=== PATIENT | female | born 1975 | race Caucasian/White ===

== ENCOUNTER 2025-07-04 08:18 | Outpatient (CLI) | payer OTHER, SELFPAY ==
--- OUTSIDE RECORDS SUMMARY | 2005-03-17 19:00 | XMS_ITS | Continuity of Care Document ---
Author Organization [facility] Address [address] [place] [address] Phone Care Team Providers Care Indian Nanny Name Role Phone Chiquita LOU, Juvencio Unavailable Freda vailable Advance Directives Directive Yes / No Effective Date File Name No Information Encounters Encounter Description Practice Location Reason(s) For Visit Diagnoses Date Provider Providers Copied on Encounter [facility] , [address], [place], [place], [id number], tel:[phone] [facility] [place] No Information Arian Henning. [address], [place], [place], [id number], [place]. tel:[phone] Family History Family Member Type Diagnosis Age At Onset No Information Payers Payer name Insurance type Covered democrat ID Authoriza tion(s) No Information Social History Type Description Quantity Date Captured Comments Sex Female Smoking Status No Information Vital Signs Date / Time: Height Weight BMI Pulse Rate Blood Pressure Temperature Respiratory Rate Body Surface Area Head Circumference Head Circ. Percentile Wt./[place]. Percentile BMI percentile Pulse Ox Inhaled Ox 10:22 AM 0.00 in 364.00 lbs 0.00 kg/m eter (2) 0 /min 120/70 mm[Hg] 0.00 F 0 /min 0.00 cm 0 % Chief Complaint And Reason For Visit No Information Reason For Referral Reason For Referral No Information History Of Present Illness Encounter Date Complaint History Of Prese nt Illness No Information Functional Status Date Functional Assessmen t No Information Instructions Date Instruction Additional Infor mation No Information Assessments Type Assessment Date No Information Patient Care Teams Name Effective Dates (start - stop) Status Members No Information
--- OUTSIDE RECORDS SUMMARY | 2025-07-04 08:33 | XMS_ITS | Clinical Summary ---
Author Organization [facility] Address [address] [place] [address] Care Team Providers Care Litigator Name Role Phone Unavailable Primary Care Provider Unavailabl e Allergies Active Allergy Reactions Criticality Noted Date Comments Latex Hives,Shortness of Breath/Wheezing,Nausea and Vomiting High 07/29/2017 Sulfa (Sulfonamide Antibiotics) Nausea and Vomiting Low 07/29/2017 Medications sertraline (ZOLOFT) 100 mg tablet Take 150 mg by mouth. 12/01/2019 Active ranolazine ER (RANEXA) 500 mg Extended Release 12 hour tablet Take 1 tablet by mouth once daily 07/23/2020 Active cephALEXin (KEFLEX) 500 mg capsule TAKE 1 CAPSULE BY MOUTH EVERY 12 HOURS FOR 10 DAYS 07/03/2020 Active Active Problems No known active problems Social History Tobacco Use Types Packs/Day Years Used Date Smoking Tobacco: Never Alcohol Use Standard Drinks/Week Comments Yes 0 (1 standard drink = 0.6 oz pur e alcohol) Comments Unknown Sex and Gender Information Value Date Recorded Sex Assigned at Not on file Legal Sex Female 9:27 PM CDT Gender Identity Not on file Sexual Orientation Not on file Last Filed Vital Signs Vital Sign Reading Time Taken Comments Blood Pressure 129/90 08/12/2020 4:27 PM HAND MOLDER Pulse 65 08/12/2020 4:27 PM HAND MOLDER Temperature 36.8 C (98.2 F) 08/12/2020 4:27 PM HAND MOLDER Respiratory Rate - - Oxygen Saturation 95% 08/12/2020 4:27 PM HAND MOLDER Inhaled Oxygen Concentration - - Weight 167.8 kg (370 lb) 08/12/2020 4:27 PM HAND MOLDER Height 177.8 cm (5' 10) 08/12/2020 4:27 PM HAND MOLDER Body Mass Index 53.09 08/12/2020 4:27 PM HAND MOLDER Plan of Treatment Health Maintenance Due Date Last Done Comments DIABETES ANNUAL FOOT EXAM 1995 DIABETES ANNUAL RETINAL EXAM 1995 DIABETES HBA1C Q 6 MONTHS 1995 DIABETES MICROALBUMIN ANNUAL SCREEN 1995 LDL CHOLESTEROL ANNUAL 1995 HEPATITIS B VACCINES (1 of 3 - 19+ 3-dose series) 1996 05/21/2011, 04/23/2011 HPV/Cotest (21-29) 1998 CERVICAL CANCER SCREENING 2007 HPV/Cotest (30-65) 2007 PAP SMEAR 2007 BREAST CANCER SCREENING 2017 COLORECTAL SCREENING 2022 Colorectal Cancer Screening 2022 FIT-DNA Q 3 years 2022 FIT/FOBT Q 1 year 2022 Flex Sig/CT Colonography Q 5 years 2022 INFLUENZA VACCINE (#1) 2025 8, 06/12/2017, 07/25/2016, Additional history exists DTAP/TDAP/TD VACCINES (4 - T d or Tdap) 06/12/2027 06/12/2017, 04/23/2011, 11/10/2008 Insurance
--- OUTSIDE RECORDS SUMMARY | 2025-07-04 08:34 | XMS_ITS | Clinical Summary ---
Author Organization [facility] Address [address] [place] [id number] Care Team Providers [facility] Name Role Phone Erma Levine MD Unavailable Mary Dasilva NP Primary Care Provider [phone] Allergies Active Allergy Reactions Criticality Noted Date Comments Latex Hives,Shortness of breath,Swelling,Chest tightness High 07/29/2017 Nsaids (Non-Steroidal Anti-Inflammatory Drug) Other (See comments) High 09/20/2024 Contraindicated due to gastric bypass Sulfa Shortness of breath High 03/03/2019 Sulfa (Sulfonamide Antibiotics) Shortness of breath,Rash High 07/29/2017 Medications aspirin 81 mg chewable tabletIndications :Type 2 diabetes mellitus with other specified complication, unspecified whether parts counterman insulin use (HCC) Take 1 tablet (81 mg total) by mouth daily 30 tablet 11 024 Active traMADoL (ULTRAM) 50 mg tablet Take 1 tablet (50 mg total) by mouth every 6 (six) hours as needed for pain 15 tablet 024 Active atorvastatin (LIPITOR) 20 mg tabletIndications :Mixed hyperlipidemia Take 1 tablet (20 mg total) by mouth daily 90 tablet 3 025 2025 Active nystatin powderIndications :Yeast dermatitis,Sympto matic abdominal panniculus Apply topically 4 (four) times a day 30 g 2 025 2025 Active ergocalciferol (VITAMIN D) 50,000 unit capsule Take 1 capsule (50,000 Units total) by mouth once a week 12 capsule 1 Active famotidine (PEPCID) 40 mg tabletIndications :Gastroesophageal reflux disease without esophagitis Take 1 tablet (40 mg total) by mouth daily 30 tablet 11 025 2025 Active cyanocobalamin (Vitamin B-12) 1,000 mcg/mL injectionIndicati ons:Vitamin B12 Deficiency Inject 1 mL (1,000 mcg total) into the muscle as instructed every 30 (thirty) days 1 mL Active syringe with needle 1 mL 25 gauge x 1 syringeIndication s:B12 deficiency 1 Units every 30 (thirty) days 12 each Active furosemide (LASIX) 20 mg tabletIndications :Hypertension, essential Take 1 tablet (20 mg total) by mouth daily as needed (for edema) Active azelastine (ASTELIN) 137 mcg (0.1 %) nasal spray [place] 2 sprays twice a day by intranasal route. Active PARoxetine (PAXIL) 10 mg tabletIndications :Menopausal vasomotor syndrome Take 1 tablet (10 mg total) by mouth every morning 30 tablet 3 Active phentermine (ADIPEX-P) 37.5 mg tabletIndications :BMI 33.0-33.9,adult Take 1 tablet (37.5 mg total) by mouth daily before breakfast 30 tablet 2 Active pregabalin (LYRICA) 75 mg capsuleIndication s:Peripheral polyneuropathy,Hy pokalemia Take 1 capsule (75 mg total) by mouth nightly 30 capsule 3 Active ranolazine ER (RANEXA) 500 mg 12 hr tabletIndications :Microvascular angina,Coronary artery disease of [place] artery of [place] heart with stable angina pectoris Take 1 tablet (500 mg total) by mouth 2 (two) times a day 200 tablet Active tirzepatide (Mounjaro) 12.5 mg/0.5 mL pen injector injection INJECT 1 PEN SUBCUTANEOUSLY ONCE A WEEK 4 mL 1 Active traZODone (DESYREL) 50 mg tablet Take 1 tablet (50 mg total) by mouth nightly 30 tablet [address] (PROTONIX) 40 mg EC tabletIndications :Gastroesophageal reflux disease without esophagitis Take 1 tablet by mouth once daily [address] (PROTONIX) 40 mg EC tabletIndications :Gastroesophageal reflux disease without esophagitis Take 1 tablet (40 mg total) by mouth daily 90 tablet 1 025 2024 Discontinued Hospital, Clinic, or Other Facility Administered Medication Ordered Dose Route Frequency Start Date End Date Status cyanocobalamin (Vitamin B-12) injection 1,000 mcgIndications:B12 deficiency 1000 mcg IM Every 30 days 10/07/2024 Active Active Problems Problem Noted Date Diagnosed Date Nonsmoker 06/21/2025 BMI 32.0-32.9,adult 06/21/2025 Psychophysiological insomnia 06/21/2025 Shift work sleep disorder 06/21/2025 YOVANY (obstructive sleep apnea) 06/21/2025 Restless legs 06/21/2025 Yeast dermatitis 10/10/2024 Assessment & Plan (04/07/2025 6:05 PM CDT): Patient with ongoing issues of yeast dermatitis secondary to large pannus. I will prescribe patient with nystatin powder. She will likely need evaluation for panniculectomy secondary to recurrent dermatitis. Referral has been placed for symptomatic panniculus Assessment & Plan (01/12/2025 5:47 PM CDT): Patient with ongoing issues of yeast dermatitis secondary to large pannus. I will prescribe patient with nystatin powder. She will likely need evaluation for panniculectomy secondary to recurrent dermatitis. Assessment & Plan (10/10/2024 6:40 PM SURFACE TO [employer] OFFICER): Patient with ongoing issues of yeast dermatitis secondary to large pannus. I will prescribe patient with nystatin powder. She will likely need evaluation for panniculectomy secondary to recurrent dermatitis. B12 deficiency 10/10/2024 Assessment & Plan (01/12/2025 5:47 PM CDT): We will continue monthly B12 injections. I have advised her to have her blood levels checked right before she is due for injection. Assessment & Plan (10/10/2024 6:44 PM SURFACE TO [employer] OFFICER): We will continue monthly B12 injections. I have advised her to have her blood levels checked right before she is due for injection. Numbness and tingling of both lower extremities 10/10/2024 Assessment & Plan (04/07/2025 6:05 PM CDT): Patient with numbness and pain to upper thigh area secondary to large pannus that puts pressure on groin and leg area at all times. Patient is established with orthopedics. I have advised her to speak to them regarding possible treatments. I do think patient would benefit from panniculectomy secondary to her ongoing symptoms. Assessment & Plan (10/10/2024 6:42 PM SURFACE TO [employer] OFFICER): Patient with numbness and pain to upper thigh area secondary to large pannus that puts pressure on groin and leg area at all times. Patient is established with orthopedics. I have advised her to speak to them regarding possible treatments. I do think patient would benefit from pain colectomy secondary to her ongoing symptoms. Bilateral carpal tunnel syndrome 08/08/2024 Carpal tunnel syndrome of left wrist 08/05/2024 Assessment & Plan (10/10/2024 6:38 PM SURFACE TO [employer] OFF[employer]ER): Follows with orthopedic hand. Status post carpal tunnel release surgery. She is doing well. Cubital tunnel syndrome on left 08/05/2024 Assessment & Plan (10/10/2024 6:38 PM SURFACE TO [employer] OFFICER): Status post cubital tunnel release. Doing well. Symptomatic abdominal panniculus 06/29/2024 Assessment & Plan (04/07/2025 6:05 PM CDT): Patient has large abdominal pannus, meeting grade 4 diagnostic criteria. She has a chronic wound in center of pannus from pannus folding in. She also has chronic ulceration on flanks from pannus folding in. Documentation in chart. She is using nystatin powder and cream PRN refills were provided Patient with numbness and pain to upper thigh area secondary to large pannus that puts pressure on groin and leg area at all times. do think patient would benefit from panniculectomy secondary to her ongoing symptoms. She has a referral in place and may use it now that her BMI is under 35. Assessment & Plan (01/12/2025 5:47 PM CDT): Patient has large abdominal pannus, meeting grade 4 diagnostic criteria. She has a chronic wound in center of pannus from pannus folding in. She also has chronic ulceration on flanks from pannus folding in. Documentation in chart. Patient with numbness and pain to upper thigh area secondary to large pannus that puts pressure on groin and leg area at all times. do think patient would benefit from panniculectomy secondary to her ongoing symptoms. We will be evaluated by plastics for panniculectomy. Assessment & Plan (11/14/2024 4:22 PM SURFACE TO [employer]ER): Assessment & Plan (06/29/2024 6:00 PM CDT): Patient has large abdominal pannus. She indicates to me that she has chronic issues with wound management of her pannus. Additionally her pannus puts a lot of pressure on her lower extremities and does exacerbate hip and leg pain. We will continue to monitor for the time being. Patient advised to keep skin off skin and keep pannus clean and dry as much as possible. I advised her as she continues to lose weight this may continue to improve if not then we will make referral to General surgery for possible panniculectomy Gastroesophageal reflux disease without esophagi tis 06/29/2024 Assessment & Plan (05/01/2025 1:34 PM CDT): Doing well on daily pantoprazole as well as nighttime famotidine. Minimal complaints of reflux at this time. Does admit that she recently increased her Mounjaro and she is having more complaints of metallic burps -Educated on how Mounjaro can decrease gastric emptying which can cause these complaints. Educated on importance of eating small portions and avoiding fatty or/greasy or types of food -If complaints increase discussed decreasing Mounjaro -Also discussed possible EGD for further investigation Assessment & Plan (04/07/2025 6:05 PM CDT): Continue famotidine and pantoprazole. Established with GI Assessment & Plan (01/12/2025 5:47 PM CDT): Assessment & Plan (01/04/2025 8:38 AM CDT): Reports that she has been having complaints of reflux and we will occasional have nighttime vomiting. She is status post gastric sleeve and currently on Mounjaro as well as phentermine to help her continue her weight loss journey. She has lost over 150 lb in the last year. She does admit that on certain occasions that she can eat fast food with her nephew. She goes to bed extremely early at roughly 7:00 p.m. as she awakes at 2:00 a.m. for work. She was recently seen by her PCP who started her on a daily PPI as well as famotidine. States that medication has been extremely helpful. Previous E[place] [address] Daniels noted reflux and discussion about Reglan was noted at that time. -Educated on importance of avoiding certain food triggers including fast food. Educated on importance of sitting upright for roughly 2-3 hours after ingesting food. -Recommended elevating the head of her bed roughly 25 to help with digestion. -Also discussed taking her pantoprazole in the a.m. and her famotidine before bed to help with her complaints. -Recommended for her not to increase her Mounjaro at this time as this decreases her gastric emptying and may increase her complaints. -Discussed possible EGD if complaints continue/worsen Encounter for weight management 12/23/2023 Assessment & Plan (10/10/2024 6:38 PM SURFACE TO [employer] OFFICER): Patient is down 14 lb since last visit with a total of 128 lb since she started weight loss efforts. Refills sent to pharmacy. Discussed medication desired effects, potential side effects, and how to administer the medication. Nonpharmacological interventions such as low carb diet, high in vegetables and fruit discussed. Educated on importance of physical activity. Congratulated patient on continued results. Follow up in 3 months or sooner if needed. Patient verbalizes understanding regarding plan of care and all questions answered. Assessment & Plan (06/29/2024 6:02 PM CDT): Weight is down 36lbs from last visit for a total of 100 lbs. Refills sent to pharmacy. Discussed medication desired effects, potential side effects, and how to administer the medication. Nonpharmacological interventions such as low carb diet, high in vegetables and fruit discussed. Educated on importance of physical activity. Congratulated patient on continued results. Follow up in 3 months or sooner if needed. Patient verbalizes understanding regarding plan of care and all questions answered. Assessment & Plan (04/06/2024 1:19 PM CDT): Weight is down 20lbs from last visit for a total of 64lbs in 3 months. Refills sent to pharmacy. Discussed medication desired effects, potential side effects, and how to administer the medication. Nonpharmacological interventions such as low carb diet, high in vegetables and fruit discussed. Educated on importance of physical activity. Congratulated patient on continued results. Follow up in 3 months or sooner if needed. Patient verbalizes understanding regarding plan of care and all questions answered. Assessment & Plan (12/23/2023 1:43 PM CDT): Cleared with Cardiology. We will start patient on phentermine 37.5 mg daily. I encouraged her to start with a half a tablet. She will start that and Topamax 25 mg b.i.d.. I went over side effects of the medication with her she is advised to not take it if she has any rapid heartbeats or palpitations. Family history of factor V Leiden mutation 12/22 Vitamin D deficiency 12/23/2023 Assessment & Plan (10/10/2024 6:44 PM SURFACE TO [employer] OFFICER): Continue vitamin-D supplement Assessment & Plan (12/23/2023 1:44 PM CDT): Repeat level pending Hypertension, essential 09/23/2023 Assessment & Plan (04/07/2025 6:05 PM CDT): Blood pressure well controlled without medication at this time. Assessment & Plan (01/12/2025 5:47 PM CDT): Orders: furosemide (LASIX) 20 mg tablet; Take 1 tablet (20 mg total) by mouth daily as needed (for edema) Assessment & Plan (10/10/2024 6:45 PM SURFACE TO [employer] OFFICER): Patient is doing so well with her weight loss blood pressure is much better. I have advised her to do a trial at home off the amlodipine 2.5 mg daily. She will message me her readings. Discussed medications desired effects, potential side effects, and how to administer the medication. Non Pharmacological interventions such as low salt, cardiac diet discussed. Educated on stress reduction and physical activity. Discussed signs and symptoms of major cardiovascular event and need to present to the ED. Follow up in 3 months or sooner if needed. Patient verbalizes understanding regarding plan of care and all questions answered. Assessment & Plan (06/29/2024 6:04 PM CDT): Maintained on Norvasc 2.5 mg tablets daily. Blood pressure normal in office today.Blood pressure well controlled. Refills sent to patients requested pharmacy. Discussed medications desired effects, potential side effects, and how to administer the medication. Non Pharmacological interventions such as low salt, cardiac diet discussed. Educated on stress reduction and physical activity. Discussed signs and symptoms of major cardiovascular event and need to present to the ED. Follow up in 3 months or sooner if needed. Patient verbalizes understanding regarding plan of care and all questions answered. Assessment & Plan (04/06/2024 1:14 PM CDT): Maintained on Norvasc 2.5 mg tablets daily. Blood pressure normal in office today.Blood pressure well controlled. Refills sent to patients requested pharmacy. Discussed medications desired effects, potential side effects, and how to administer the medication. Non Pharmacological interventions such as low salt, cardiac diet discussed. Educated on stress reduction and physical activity. Discussed signs and symptoms of major cardiovascular event and need to present to the ED. Follow up in 3 months or sooner if needed. Patient verbalizes understanding regarding plan of care and all questions answered. Assessment & Plan (12/23/2023 1:39 PM CDT): Maintained on Norvasc 2.5 mg tablets daily. Blood pressure normal in office today.Blood pressure well controlled. Refills sent to patients requested pharmacy. Discussed medications desired effects, potential side effects, and how to administer the medication. Non Pharmacological interventions such as low salt, cardiac diet discussed. Educated on stress reduction and physical activity. Discussed signs and symptoms of major cardiovascular event and need to present to the ED. Follow up in 3 months or sooner if needed. Patient verbalizes understanding regarding plan of care and all questions answered. Assessment & Plan (09/23/2023 11:20 AM SURFACE TO [employer] OFFICER): Maintained on Norvasc 2.5 mg tablets daily. Blood pressure normal in office today.Blood pressure well controlled. Refills sent to patients requested pharmacy. Discussed medications desired effects, potential side effects, and how to administer the medication. Non Pharmacological interventions such as low salt, cardiac diet discussed. Educated on stress reduction and physical activity. Discussed signs and symptoms of major cardiovascular event and need to present to the ED. Follow up in 3 months or sooner if needed. Patient verbalizes understanding regarding plan of care and all questions answered. Coronary artery disease of [place] artery of [place] heart with stable angina pectoris 06/19/2023 Assessment & Plan (10/10/2024 6:38 PM SURFACE TO [employer] OFFICER): Patient controlled on Ranexa 500 mg b.I.d. patient follows with Cardiology. She saw Cardiology today. She is asymptomatic. They will continue Ranexa recommended to increase Lipitor no other changes. Continue Lipitor and aspirin. Cardiology's okay with phentermine Assessment & Plan (06/29/2024 6:02 PM CDT): Patient controlled on Ranexa 500 mg b.I.d. patient follows with Cardiology. She saw Cardiology today. She is asymptomatic. They will continue Ranexa recommended to increase Lipitor no other changes. Continue Lipitor and aspirin. Cardiology's okay with phentermine Assessment & Plan (04/06/2024 1:17 PM CDT): Patient controlled on Ranexa 500 mg b.I.d. patient follows with Cardiology. She saw Cardiology today. She is asymptomatic. They will continue Ranexa recommended to increase Lipitor no other changes. Continue Lipitor and aspirin. Cardiology's okay with phentermine Assessment & Plan (12/23/2023 1:39 PM CDT): Patient controlled on Ranexa 500 mg b.I.d. patient follows with Cardiology. She saw Cardiology today. She is asymptomatic. They will continue Ranexa recommended to increase Lipitor no other changes. Cardiology's okay with phentermine Assessment & Plan (09/23/2023 11:17 AM SURFACE TO [employer] OFFICER): Patient controlled on Ranexa 500 mg b.I.d. patient follows with Cardiology. Recently moved back to the area from [place]. She has been referred to Cardiology, she has been rescheduled by them a couple times.. She denies any current angina. She requests to try phentermine for weight loss. However I told her the outside comfortable prescribing this without clearance from Cardiology. Assessment & Plan (06/19/2023 2:21 PM CDT): Patient controlled on Ranexa 500 mg b.I.d. patient follows with Cardiology. Recently moved back to the area from [place]. She is scheduled with Dr. Santiago on June 23. She denies any current angina. Mixed hyperlipidemia 06/19/2023 Assessment & Plan (04/07/2025 6:05 PM CDT): Continue atorvastatin to 20 mg due to cardiology's recommendation of maintaining LDL less than 70. Discussed medication desired effects, potential side effects, and how to administer the medication. Nonpharmacological interventions such as low carb diet, high in vegetables and fruit discussed. Educated on importance of physical activity. Follow up in three months or sooner if needed. Patient verbalizes understanding regarding plan of care and all questions answered Assessment & Plan (10/10/2024 6:39 PM SURFACE TO [employer] OFFICER): Continue atorvastatin to 20 mg due to cardiology's recommendation of maintaining LDL less than 70. Discussed medication desired effects, potential side effects, and how to administer the medication. Nonpharmacological interventions such as low carb diet, high in vegetables and fruit discussed. Educated on importance of physical activity. Follow up in three months or sooner if needed. Patient verbalizes understanding regarding plan of care and all questions answered Assessment & Plan (04/06/2024 1:14 PM CDT): Continue atorvastatin to 20 mg due to cardiology's recommendation of maintaining LDL less than 70. Discussed medication desired effects, potential side effects, and how to administer the medication. Nonpharmacological interventions such as low carb diet, high in vegetables and fruit discussed. Educated on importance of physical activity. Follow up in three months or sooner if needed. Patient verbalizes understanding regarding plan of care and all questions answered Assessment & Plan (12/23/2023 1:41 PM CDT): Fasting lipid panel pending. We will increase atorvastatin to 20 mg due to cardiology's recommendation of maintaining LDL less than 70. Discussed medication desired effects, potential side effects, and how to administer the medication. Nonpharmacological interventions such as low carb diet, high in vegetables and fruit discussed. Educated on importance of physical activity. Follow up in three months or sooner if needed. Patient verbalizes understanding regarding plan of care and all questions answered Assessment & Plan (09/23/2023 11:18 AM SURFACE TO [employer]ICER): Fasting lipid panel reviewed from last visit. Within normal limits. Patient is maintained on Lipitor 10 mg tablets. We will continue this medication. I discussed nonpharmacological interventions with her such as a low saturated fat diet and increasing physical activity. Assessment & Plan (06/19/2023 2:22 PM CDT): Fasting lipid panel ordered. Cholesterol previously controlled on Lipitor 10 mg tablets/ Refills sent to patients requested pharmacy. Discussed medication desired effects, potential side effects, and how to administer the medication. Nonpharmacological interventions such as low carb diet, high in vegetables and fruit discussed. Educated on importance of physical activity. Follow up in 3 months or sooner if needed. Patient verbalizes understanding regarding plan of care and all questions answered H/O gastric bypass 06/19/2023 Assessment & Plan (10/10/2024 6:37 PM SURFACE TO [employer] OFFICER): Patient with history of gastric bypass surgery. Assessment & Plan (12/23/2023 1:38 PM CDT): Patient with history of gastric bypass surgery. Assessment & Plan (09/23/2023 11:20 AM SURFACE TO [employer] OFFICER): Patient with history of gastric bypass surgery. Assessment & Plan (06/19/2023 2:23 PM CDT): Patient with history of gastric bypass surgery. She has not had recent B12, vitamin-D, or folate labs. Patient with initial weight loss of 200 lb however she has gained 100 lb back. We discussed continuing weight loss efforts through injectable medications such as Wegovy. We will try to get Wegovy approved through patient's pharmacy. Wellness examination 06/19/2023 Assessment & Plan (10/10/2024 6:40 PM SURFACE TO [employer] OFFICER): Routine health maintenance objectives discussed and orders placed for any outstanding screening studies. Physical exam performed as above. Routine annual labs obtained and will be reviewed with patient when results available. Age-appropriate anticipatory guidance and counseling was provided and reviewed including: Smoke detectors in the home. Use of sunscreen on a daily basis for skin cancer prevention Encouraged regular physical activity--moderate activity for a total of 150 minutes per week over 3-5 days. Encouraged healthy diet with regular fresh fruits and vegetables limited in processed carbohydrates. Consistent use of seat belt Alcohol use Nicotine use Depression screening Patient is a excellent historian and provided records of mammograms, colonoscopy, previous lab results. Assessment & Plan (06/19/2023 2:30 PM CDT): Routine health maintenance objectives discussed and orders placed for any outstanding screening studies. Physical exam performed as above. Routine annual labs obtained and will be reviewed with patient when results available. Age-appropriate anticipatory guidance and counseling was provided and reviewed including: Smoke detectors in the home. Use of sunscreen on a daily basis for skin cancer prevention Encouraged regular physical activity--moderate activity for a total of 150 minutes per week over 3-5 days. Encouraged healthy diet with regular fresh fruits and vegetables limited in processed carbohydrates. Consistent use of seat belt Alcohol use Nicotine use Depression screening Patient is a excellent historian and provided records of mammograms, colonoscopy, previous lab results. Peripheral polyneuropathy 11/22/2018 Assessment & Plan (04/07/2025 6:05 PM CDT): Orders: pregabalin (LYRICA) 75 mg capsule; Take 1 capsule (75 mg total) by mouth nightly Assessment & Plan (01/12/2025 5:47 PM CDT): She is controlled on Lyrica 75 mg capsules b.I.d.. We will continue that medication. Assessment & Plan (10/10/2024 6:41 PM SURFACE TO [employer] OFFICER): She is controlled on Lyrica 75 mg capsules b.I.d.. We will continue that medication. Assessment & Plan (06/29/2024 6:01 PM CDT): She is controlled on Lyrica 75 mg capsules b.I.d.. We will continue that medication. Assessment & Plan (12/23/2023 1:41 PM CDT): She is controlled on Lyrica 75 mg capsules b.I.d.. We will continue that medication. Assessment & Plan (09/23/2023 11:21 AM SURFACE TO [employer] OFFICER): She is controlled on Lyrica 75 mg capsules b.I.d.. We will continue that medication. Assessment & Plan (06/19/2023 2:28 PM CDT): Patient with longstanding history of peripheral neuropathy. She is controlled on Lyrica 75 mg capsules b.I.d.. We will continue that medication. Medication was sent to patient's pharmacy. Osteoarthritis of spine with radiculopathy, lumb ar region 09/25/2018 Assessment & Plan (10/10/2024 6:41 PM SURFACE TO [employer] OFFICER): Patient with lower back pain which is exacerbated from the weight of her pannus. Assessment & Plan (06/29/2024 6:01 PM CDT): Patient with lower back pain which is exacerbated from the weight of her pannus. Primary osteoarthritis of both knees 06/19/2017 Assessment & Plan (10/10/2024 6:40 PM SURFACE TO [employer] OFFICER): Improving with weight loss Primary osteoarthritis of both hips 03/02/2017 Assessment & Plan (10/10/2024 6:40 PM SURFACE TO [employer] OFFICER): Patient indicates she controls her osteoarthritis of bilateral hips with [id number] pain medication. She tries to be as active as possible. The pressure from her pannus does exacerbate her arthritis. Assessment & Plan (06/29/2024 6:00 PM CDT): Patient indicates she controls her osteoarthritis of bilateral hips with [id number]-[id number] pain medication. She tries to be as active as possible. The pressure from her pannus does exacerbate her arthritis. Acne rosacea 02/27/2016 Assessment & Plan (10/10/2024 6:39 PM SURFACE TO [employer] OFFICER): Currently asymptomatic Diabetes mellitus, type II 02/27/2016 Assessment & Plan (04/07/2025 6:05 PM CDT): A1C at goal. Refills sent to patients requested pharmacy. Discussed medications desired effects, potential side effects, and how to administer the medication. Nonpharmacological interventions such as low carb diet, high in vegetables and low glycemic fruits discussed. Educated on importance of physical activity. Encourage diabetic eye exam. Discussed signs and symptoms of hypoglycemia and need to present to the ED. Follow up in 3 months or sooner if needed. Patient verbalizes understanding regarding plan of care and all questions answered. Assessment & Plan (01/12/2025 5:47 PM CDT): A1C at goal. Refills sent to patients requested pharmacy. Discussed medications desired effects, potential side effects, and how to administer the medication. Nonpharmacological interventions such as low carb diet, high in vegetables and low glycemic fruits discussed. Educated on importance of physical activity. Encourage diabetic eye exam. Discussed signs and symptoms of hypoglycemia and need to present to the ED. Follow up in 3 months or sooner if needed. Patient verbalizes understanding regarding plan of care and all questions answered. Assessment & Plan (10/10/2024 6:38 PM SURFACE TO [employer] OFFICER): Continue Mounjaro 10 mg weekly. Refills sent to patients requested pharmacy. Discussed medications desired effects, potential side effects, and how to administer the medication. Nonpharmacological interventions such as low carb diet, high in vegetables and low glycemic fruits discussed. Educated on importance of physical activity. Encourage diabetic eye exam. Discussed signs and symptoms of hypoglycemia and need to present to the ED. Follow up in 3 months or sooner if needed. Patient verbalizes understanding regarding plan of care and all questions answered. Assessment & Plan (04/06/2024 1:16 PM CDT): will increase the Mounjaro from 5 mg to 7.5 mg with the intention to increase to 10 after 1 month as the 7.5 mg is a stepping dose.Refills sent to patients requested pharmacy. Discussed medications desired effects, potential side effects, and how to administer the medication. Nonpharmacological interventions such as low carb diet, high in vegetables and low glycemic fruits discussed. Educated on importance of physical activity. Encourage diabetic eye exam. Discussed signs and symptoms of hypoglycemia and need to present to the ED. Follow up in 3 months or sooner if needed. Patient verbalizes understanding regarding plan of care and all questions answered. Assessment & Plan (02/29/2024 5:00 PM CDT): We will increase Mounjaro to 5 mg weekly. dicussed and encouraged low- carbohydrate diet, advised to exercise on a regular basis, advised to have annual eye exam. We will continue to monitor. Assessment & Plan (12/23/2023 1:38 PM CDT): Last A1c was in normal limits. She is controlled by diet. Repeat A1c pending Assessment & Plan (09/23/2023 11:17 AM SURFACE TO [employer] OFFICER): Last A1c was in normal limits. She is controlled by diet. Repeat A1c pending Assessment & Plan (06/19/2023 2:23 PM CDT): Patient with a history of type 2 diabetes, last A1c was normal off medications. We have a pending A1c. Resolved Problems Problem Noted Date Diagnosed Date Resolved Date Numbness and tingling in left arm 06/29/2024 10/10/2024 Assessment & Plan (06/29/2024 6:03 PM CDT): Nerve conduction study ordered. We will refer pending results Otitis externa of right ear 02/29/2024 06/29/2024 Assessment & Plan (02/29/2024 5:01 PM CDT): Recommend use of ofloxacin drops daily. Use 5 drops in right ear daily x7 days. Recommend use of Zyrtec for postnasal drip as well. Hypokalemia 09/23/2023 10/10/2024 Assessment & Plan (10/10/2024 6:39 PM SURFACE TO [employer] OFFICER): Maintained on potassium 10 mEq. Assessment & Plan (06/29/2024 6:04 PM CDT): Maintained on potassium 10 mEq. Assessment & Plan (04/06/2024 1:14 PM CDT): Maintained on potassium 10 mEq. Assessment & Plan (12/23/2023 1:40 PM CDT): Maintained on potassium 10 mEq. CMP pending. Assessment & Plan (09/23/2023 11:20 AM SURFACE TO [employer] OFFICER): Maintained on potassium 10 mEq. CMP pending. Morbid obesity with BMI of 40.0-44.9, adult 06/19/2023 04/07/2025 Assessment & Plan (10/10/2024 6:41 PM SURFACE TO [employer] OFFICER): Discussed the patient's BMI. The BMI is above average. BMI management plan is completed. BMI Follow-up includes: nutrition counseling, exercise counseling and education provided. Patient is doing well. She is down a total of 128 lb since starting weight loss program with this office. She is using Topamax, phentermine (with a one month break every 3 months) and Mounjaro (type 2 diabetes). Assessment & Plan (04/06/2024 1:15 PM CDT): Discussed the patient's BMI. The BMI is above average. BMI management plan is completed. BMI Follow-up includes: nutrition counseling, exercise counseling and education provided. 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 Patient is encouraged to continue doing that as this is a great effort towards her weight loss. Patient is doing well. She is lost 20 lb since last visit with a total of 64lb since starting weight loss program with this office. She is using Topamax, phentermine (with a one month break every 3 months) and Mounjaro (type 2 diabetes). Assessment & Plan (02/29/2024 4:59 PM CDT): Discussed the patient's BMI. The BMI is above average. BMI management plan is completed. BMI Follow-up includes: nutrition counseling, exercise counseling and education provided. 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 Patient is encouraged to continue doing that as this is a great effort towards her weight loss. Patient is doing well. She is lost 44 lb since last visit. She is using Topamax, phentermine, and Mounjaro. Assessment & Plan (06/19/2023 2:28 PM CDT): Discussed the patient's BMI. The BMI is above average. BMI management plan is completed. BMI Follow-up includes: nutrition counseling, exercise counseling and education provided. 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 Patient is encouraged to continue doing that as this is a great effort towards her weight loss Gallbladder colic 04/03/2021 04/06/2024 Fall involving ice skates 04/03/2021 Musculoskeletal pain 04/03/2021 024 Pain in right knee 04/03/2021 Urinary tract infectious disease 04/03/2021 06/29/2024 Class 3 severe obesity due t o excess calories with serious comorbidity and body mass index (BMI) of 45.0 to 49.9 in adult 12/05/2019 3 Assessment & Plan (12/05/2019 10:28 AM CDT): Overall Condition: New Diagnosis Treatment: New Medication: Start Phentermine; Follow up PRN Abnormal weight gain 01/05/2019 024 Assessment & Plan (01/05/2019 4:37 PM CDT): Discussed/Re-emphasized Diet (90%) + Physical Activity (10%) Plan: Discussed/Re-emphasized Vegetables/Fruits Nutritional Ranking Handout: Recommended >80% calories from Whole Food Plant Based Nutrition. Discussed/Re-emphasized Processed Food (Frozen, Canned, Fast, Refined...) vs. Whole Food/Organic/Non-GMO Discussed/Re-emphasized High Fiber Diet: How to increase fibers in diet Handout being provided. Discussed/Re-emphasized [place]/Phytochemicals Diet. Disucssed/Re-emphasized [place] Diet: Grocery List and Weekly Meal Plan provided. Discussed/Re-emphasized Low Carb Diet (<50g/day) with approximately Low Calories (<1200kcal/day): Grocery List, Daily Meal Plan and Healthy Alternative being provided. Discussed/Re-emphasized Non-weight bearing exercise to complete average 7500- [id number] steps per day: Swimming or Stationary Exercise Bike. Disccused/Re-emphasized YOVANY/CPAP/Sleep. Disccused/Re-emphasized Good Carb/Protein/Fat. Discussed/Re-emphasized Glycemic Index/Load to determine Good vs. Bad Carbs. Discussed/Re-emphasized Behaviroral Modification to reduce stress by Yoga and Mindfulness. Discussed/Re-emphasized Small (<250kcal) vs. Large Meals (<450kcal) Based on Calories, not volume: Approximately Small Meals x 3 + Large Meal x 1 (Preferably Lunch). Discussed/Re-emphasized Small Meal Intermittent Snacking (<250kcal): Nuts (Soaked in water overnight), Berries, Seeds, Dried/Fresh Fruits/Vegetables. Discussed/Re-emphasized Energy Options: Vitamin B12 Tablets (2 hours prior to Dinner), Caffeine Tablets (in AM or Lunch Time) or FDA Approved Weight Loss Prescription Medications. Discussed/Re-emphasized Weight loss Medications in detail including side effects: Phenteramine, Qsymia, Belviq, Contrave, Saxenda! Consider OTC Meal Replacement Plans or Home Delivery Meal Plans. Encourage Monthly office visits to ensure accountability and continuous positive weight outcomes. General Guidelines: 1. Restrict Caloric Intake: Instead of calculating total calories, you can eliminate one food item from daily intake at a time that would be worth of 100-200 kcal. Minimize Processed carbohydrates (Potatoes, Pasta, Bread, rice and corn) and processed sugars (Sodas, Cookies, Donuts & Desserts). Small plates and bowels. Small meals (Under 250kcal) at a time! 2. Quality of Diet: Organic, Non-GMO, fresh, raw-food, whole-food & more fruits and vegetables. Look for lean protein (Soy, Lentils, beans, legumes and nuts). Avoid processed food (frozen, canned, fast-food). Shop food economically from multiple places. 3. Stress Reduction: Yoga, Mindfulness, Exercise, Volunteering, Spirituality! Mindfulness eating (Avoid multi-tasking while eating and Increase awareness of what food is doing to Body). 4. Quality Restful Sleep: Melatonin, Yoga-Nidra, Kiwi fruit. Avoid meals in last two hours of the day. Avoid Caffeine, alcohol, high sugar/desserts and tobacco with or after dinner. 5. Increase Exertion within Daily Activities: [id number] Steps/day. Avoid Elevators, escalators at public places. Increase steps in parking lots!. Clinical Notes: More than 30 minutes being spent Face to Face with Patient during office visit. More than 50% duration was spent toward Detailed Counselling including various kinds of Dietory methods, activities, medications and potential weight loss surgical options. Detailed Handouts on each topics were also printed and hand-delivered to the patient. BMI 40.0-44.9, adult 11/22/2018 023 Chronic pain syndrome 11/22/20182023 Other chronic pain 11/22/2018 Osteoarthritis of lumbosacra l spine with radiculopathy 10/26/2018 06/29/2024 Surgical follow-up care 10/01/201705/2024 Constipation in pediatric patient 07/30/2017 06/19/2023 Pelvic floor dysfunction 07/29/2017 Morbid (severe) obesity due to excess calories 02/27/2016 04/06/2024 Assessment & Plan (12/23/2023 1:41 PM CDT): We discussed obesity effects on her chronic health conditions of heart disease, prediabetes, joint pain. We discussed general weight loss efforts through lifestyle modifications. We also discussed weight loss efforts through medications her insurance does not cover Wegovy or other weight loss medications. She does want to try phentermine however I am hesitant due to her cardiac history. She must get approval from Cardiology 1st. Assessment & Plan (09/23/2023 11:18 AM SURFACE TO [employer] OFFICER): We discussed obesity effects on her chronic health conditions of heart disease, prediabetes, joint pain. We discussed general weight loss efforts through lifestyle modifications. We also discussed weight loss efforts through medications her insurance does not cover Wegovy or other weight loss medications. She does want to try phentermine however I am hesitant due to her cardiac history. She must get approval from Cardiology 1st. Assessment & Plan (06/19/2023 2:27 PM CDT): Patient is interested in weight loss efforts due to her obesity. We discussed obesity effects on her chronic health conditions of heart disease, prediabetes, joint pain. We discussed general weight loss efforts through lifestyle modifications. We also discussed weight loss efforts through medications and I encouraged patient to try Wegovy if we can get it approved through her insurance. Assessment & Plan (01/05/2019 4:38 PM CDT): Obesity is improving with lifestyle modifications. Discussed the patient's BMI. The BMI is above average; BMI management plan is completed. General weight loss/lifestyle modification strategies discussed (elicit support from others; identify saboteurs; non-food rewards, etc). Depression 02/27/2016 10/10/2024 Assessment & Plan (04/06/2024 1:16 PM CDT): Patient is doing well. She is asymptomatic. Assessment & Plan (12/23/2023 1:39 PM CDT): PHQ is 0 in office today. Assessment & Plan (09/23/2023 11:17 AM SURFACE TO [employer] OFFICER): PHQ is 0 in office today. Assessment & Plan (06/19/2023 2:32 PM CDT): PHQ 2 in office today. Patient controlled off medications. Patient with significant loss and family this week. Her niece from cervical cancer at the age of 32. Patient is sad in office today when discussing this. She will call office if she needs any further interventions. Lower extremity edema 02/27/20162023 Assessment & Plan (12/23/2023 1:41 PM CDT): Continue furosemide 20 mg daily. Encounters Date Type Department Care Team Description 06/21/2025 2:30 PM CDT Office Visit [facility] [address] [place] [id number] Brandon Evans MD YOVANY (obstructive sleep apnea) (Primary Dx); Shift work sleep disorder; Psychophysiological insomnia; BMI 32.0-32.9,adult; Nonsmoker; Restless legs 05/01/2025 1:30 PM CDT Office Visit [facility] at [address] [place] [address] Brittney Gould NP Gastroesophageal reflux disease without esophagitis (Primary Dx) 04/07/2025 Results Follow-Up [facility] at [address] [phone] Mary Dasilva NP Estradiol, Follicle stimulating hormone 04/06/2025 4:15 PM CDT Lab [facility] at [address] [phone] 04/06/2025 4:12 PM CDT - 04/06/2025 11:59 PM CDT Hospital Encounter [address] [id number] Menopausal vasomotor syndrome Discharge Disposition: Discharge to home or self care 04/06/2025 3:00 PM CDT Office Visit [facility] at [address] [phone] Mary Dasilva NP BMI 33.0-33.9,adult (Primary Dx); Daytime hypersomnolence; Excessive sleepiness while driving; Peripheral polyneuropathy; Hypokalemia; Menopausal vasomotor syndrome; Yeast dermatitis; Symptomatic abdominal panniculus; Numbness and tingling of both lower extremities; Mixed hyperlipidemia; Hypertension, essential; Gastroesophageal reflux disease without esophagitis; Type 2 diabetes mellitus with other specified complication, unspecified whether assisted insulin use (HCC) from Last 3 Months Immunizations Immunization Administration Dates Next Due DTaP 11/25/2019 Hep B Vaccine 05/21/2011,04/23/2011 Influenza, Quadrivalent, Spl it, Intramuscular 05/22/2020,08/12/2019,07/12/2018,07/10 Influenza, Quadrivalent, Spl it, Preservative Free, Intramuscular 09/23/2023,08/29/2022,08/19/2021,05/22,08/12/2019,07/12/2018,06/12/2017 Influenza, Trivalent, IM (MDV) 06/14/2015 Influenza, Trivalent, Preser vative Free, Intramuscular 06/29/2024,07/25/2016 Influenza, Unspecified 11/30/2018,06/14/2015 MMR 07/22/2011,04/23/2011,04/22/1991 Pneumococcal Polysaccharide PPV23 11/12/2014 Td, adsorbed 04/22/1991 Tdap 06/12/2017,04/23/2011,11/10/2008 Surgical History Surgery Date Site/Laterality Comments GASTRIC BYPASS 09/21/2015 - 09/20/2016 FISTULA REPAIR CHOLECYSTECTOMY FLUORO GUIDED INJECTION HIP RIGHT 04/09/2017 Right FLUORO GUIDED INJECTION HIP RIGHT 10/05/2017 Right CARDIAC CATHETERIZATION 02/19/2023 CARPAL TUNNEL RELEASE 09/20/2024 Left NEUROPLASTY / TRANSPOSITION ULNAR NERVE AT ELBOW 09/20/2024 Left ulnar nerve decompression Medical History Medical History Date Comments Depression Diabetes Acne rosacea Hypertension Hyperlipidemia GERD (gastroesophageal reflux disease) Neuropathy hands, legs, fee t Constipation in pediatric patient 07/30/2017 Fall involving ice skates 04/03/2021 Diabetes mellitus, type II 02/27/2016 Gastroesophageal reflux disease without esophagi tis 06/29/2024 Hypertension, essential 09/23/2023 Family History Medical History Relation Name Comments COPD Brother Antoni Clotting disorder Brother Antoni Factor V Leiden Brother Antoni Heart attack Father Heart disease Father COPD Mother Danae Cancer Mother Danae Family history of malignant neoplasm - (Added by TW Conv) Colon cancer Mother Danae Family history of colorectal cancer - (Added by TW Conv) Hypertension Mother Danae Colon cancer Other 1 Family history of colorectal cancer - Relation: Uncle (Added by TW Conv) Cancer Other 2 Family history of malignant neoplasm - Relation: Grandparent (Added by TW Conv) Breast cancer Neg Hx Relation Name Status Comments Brother Antoni Alive Father Mother Danae Other 1 Other 2 Social History Tobacco Use Types Packs/Day Years Used Date Smoking Tobacco: Never Smokeless Tobacco: Never Tobacco Cessation:Counseling Given: Not Answered Alcohol Use Standard Drinks/Week Comments Yes 0 (1 standard drink = 0.6 oz pur e alcohol) AUDIT-C Answer Date Recorded Q1: How often do you have a drink containing alcohol? Never 04/06/2025 Q2: How many drinks containi ng alcohol do you have on a typical day when you are drinking? Patient does not drink Q3: How often do you have si x or more drinks on one occasion? Never 04/06/2025 PHQ-2 Answer Date Recorded PHQ-2 Total Score (If total score is 3 or more points, staff should administer the PHQ-9) 2 04/06/2025 Personal Safety Answer Date Recorded Have you ever been in or are you currently in a harmful physical or emotional relationship or is someone making you feel afraid or unsafe? Denies 09/20/2024 Comments No Sex and Gender Information Value Date Recorded Sex Assigned at Not on file Legal Sex Female 11:33 PM SURFACE TO [employer] OFFICER Gender Identity Female 05/22/2023 7:14 AM CDT Sexual Orientation Not on file Obstetrics History Para Term AB IAB SAB Ectopic Multiple Livin g Live Births 0 0 0 Last Filed Vital Signs Vital Sign Reading Time Taken Comments Blood Pressure 110/66 06/21/2025 2:36 PM CDT Pulse 80 06/21/2025 2:36 PM CDT Temperature 36.4 C (97.6 F) 06/21/2025 2:36 PM CDT Respiratory Rate 18 06/21/2025 2:36 PM CDT Oxygen Saturation 99% 06/21/2025 2:36 PM CDT Inhaled Oxygen Concentration - - Weight 103.1 kg (227 lb 4.8 oz) 06/21/2025 2:36 PM CDT Height 177.8 cm (5' 10) 06/21/2025 2:36 PM CDT Body Mass Index 32.61 06/21/2025 2:36 PM CDT Plan of Treatment Health Maintenance Due Date Last Done Comments Dilated Eye Exam 1977 Pneumococcal vaccine <65 (2 of 2 - PCV) 11/12/2015 11/12/2014 Covid-19 Vaccine (2 - 2024-2 6 season) 2025 12/13/2020 Influenza Vaccine (#1) 2025 4, 09/23/2023, 08/29/2022, Additional history exists Albumin Creatinine Ratio, Urine 06/29/2025 4, 06/24/2023 Foot Exam 06/29/2025 06/29/2024 Breast Cancer Screening-Mammogram 07/20/2025 07/20/2024, 01/30/2023, 01/30/2023, Additional history exists Hemoglobin A1C 10/01/2025 03/31/2025, 1005/2024, 12/23/2023, Additional history exists Regular Well Visit/Exam 18-64 10/07/2025, 06/19/2023, 12/01/2019 Colon Cancer Screening-Colonoscopy 01/21/2026 01/21/2021 Lipid Panel 03/31/2026 03/31/2025, 04/0 05/2025, 07/20/2024, Additional history exists eGFR 03/31/2026 03/31/2025, 04/0 05/2025, 07/20/2024, Additional history exists Depression Screening 04/06/2026 04/06/2025, 11/14/2024, 12/23/2023, Additional history exists Cervical Cancer Screening 09/24/2026 09/24/2021 DTaP/Tdap/Td Vaccine (5 - Td or Tdap) 11/24/2029 11/25/2019, 06/12/2017, 04/23/2011, Additional history exists Hepatitis B Screening Completed 05/21/2011, 011 Hepatitis C Screening Discontinued Procedures Procedure Name Priority Date/Time Associated Diagnosis Comments FOLLICLE STIMULATING HORMONE Routine 04/06/2025 4:12 PM CDT Menopausal vasomotor syndrome ESTRADIOL Routine 04/06/2025 4:12 PM CDT Menopausal vasomotor syndrome EGFR Routine 03/31/2025 12:22 PM CDT Mixed hyperlipidemia HEMOGLOBIN A1C Routine 03/31/2025 12:22 PM CDT Type 2 diabetes mellitus with other specified complication, unspecified whether assisted insulin use (HCC) LIPID PANEL Routine 03/31/2025 12:22 PM CDT Type 2 diabetes mellitus with other specified complication, unspecified whether parts counterman insulin use (HCC) Mixed hyperlipidemia SCREENING MAMMOGRAM BILATERAL W ОЛЕГ Schedule Routine, Read Routine (OP Routine) 07/20/2024 9:46 AM CDT Screening mammogram, encounter for ALBUMIN CREATININE RATIO, URINE Routine 06/29/2024 10:20 AM CDT Type 2 diabetes mellitus with other specified complication, without long-term current use of insulin (HCC) from Last 3 Months or Most Recently Relevant to Health Maintenance Results * Estradiol (04/06/2025 4:12 PM CDT) Estradiol 81.8 pg/mL Comment: Interpretive Data Males: 11 43 pg/mL Females: Premenopausal: 31 533 pg/mL Postmenopausal: < 50 pg/mL Patients treated with Fluvestrant (Faslodex) should be tested using an alternate assay such as LC-MS due to potential for cross-reactivity. Estradiol varies widely throughout the menstrual cycle. Current interpretive data was last revised 2024. Testing performed by: [facility], [address] [place] [address]., [id number] Blood 04/06/2025 4:12 PM CDT 04/07/2025 10:12 AM CDT Mary Dasilva ELECTRONIC TRANSACTION IMPLEMENTER LAB BLOOD ORDERABLES Final Re sult Performing Organization Address [facility] de Phone Number [facility] [id number] [place] [address] * Follicle stimulating hormone (04/06/2025 4:12 PM CDT) FSH 15.9 IUnits/L Comment: Interpretive Data Male: Adults: 1.5 - 12.4 IUnits/L Female: Follicular: 3.5 - 12.5 IUnits/L Ovulation: 4.7 - 21.5 IUnits/L Luteal: 1.7 - 7.7 IUnits/L Postmenopausal: 25.8 - 134.8 IUnits/L Current interpretive data was last revised 2015. Testing performed by: [facility], [address] [place] [address]., [id number] Blood 04/06/2025 4:12 PM CDT 04/07/2025 10:12 AM CDT Mary Dasilva NP LAB BLOOD ORDERABLES Final Re sult Performing Organization Address [facility] de Phone Number CARLO [address] Department [place] [address] * eGFR (03/31/2025 12:22 PM CDT) eGFR 73 >=60 mL/min/1. 73 m2 Comment: Interpretive Data Reference Interval Normal >/= 90 mL/min/1.73m2 Mildly decreased* 60 - 89 mL/min/1.73m2 Mildly to moderately decreased 45 - 59 mL/min/1.73m2 Moderately to severely decreased 30 - 44 mL/min/1.73m2 Severely decreased 15 - 29 mL/min/1.73m2 Kidney Failure < 15 mL/min/1.73m2 *Relative to young adult level Estimated glomerular filtration rate is determined by the 2020 CKD-EPI equation recommended by the National Kidney Foundation (A Unifying Approach to GFR Estimation: Recommendations of the NKF-ASK Task Force on Reassessing the Inclusion of Race in Diagnosing Kidney Disease, JASN 2020). The CKD-EPI equation should not be used for patients with unstable renal function and has not been validated in children and those over 70. Current interpretive data was last reviewed 2021. Blood 03/31/2025 12:2 2 PM CDT 03/31/2025 12:57 PM CDT Mary Dasilva NP LAB BLOOD ORDERABLES Final Re sult CARLO [address] [facility] Department [place] [address] * Hemoglobin A1c (03/31/2025 12:22 PM CDT) Hgb A1C 4.5 4.0 - 5.6 % Estimated Average Glucose 82 mg/dL CARLO ESCOBAR Comment: The ADA recommends reporting an estimated Average Glucose (eAG) with all Hemoglobin A1c results using the equation derived from a study of 507 normal and diabetic adults. Minority populations were underrepresented and children were not included. (Diabetes Care 31:8060-6737, 2008). The eAG is not equivalent to a fasting glucose. Blood 03/31/2025 12:2 2 PM CDT 03/31/2025 12:57 PM CDT us Mary Dasilva NP LAB BLOOD ORDERABLES Final Re sult CARLO ESCOBAR [address] [facility] Department [place] [address] * Lipid panel (03/31/2025 12:22 PM CDT) Cholesterol 118 30 - 199 mg/dL Comment: Interpretive Data Ages < or = 19 years Acceptable: <170 mg/dL Borderline high: 170-199 mg/dL High: >or= 200 mg/dL Ages > or = 20 years Desirable: <200 mg/dL Borderline high: 200-239 mg/dL High: >or= 240 mg/dL Literature References: 1. Expert Panel on Integrated Guidelines for Cardiovascular Health and Risk Reduction in Children and Adolescents. Pediatrics 2011;128:S213 2. NCEP Expert Panel. Circulation 2004;110:227 Current Interpretive Data was last revised on 2018. Triglycerides 67 <=149 mg/dL CARLO ESCOBAR Comment: Interpretive Data Ages < or = 9 years Acceptable: <75 mg/dL Borderline high: 75-99 mg/dL High: >or= 100 mg/dL Ages 10 to 20 years Acceptable: <90 mg/dL Borderline high: 90-129 mg/dL High: >or= 130 mg/dL Ages > or = 20 years Desirable: <150 mg/dL Borderline high: 150-199 mg/dL High: 200-499 mg/dL Very high: >or= 499 mg/dL Literature References: 1. Expert Panel on Integrated Guidelines for Cardiovascular Health and Risk Reduction in Children and Adolescents. Pediatrics 2011;128:S213 2. NCEP Expert Panel. Circulation 2004;110:227 Current Interpretive Data was last revised on 2018. HDL 42 >=40 mg/dL CARLO ESCOBAR Comment: Interpretive Data Ages < or = 19 years Acceptable: >45 mg/dL Borderline low: 40-45 mg/dL Low: <40 mg/dL Ages > or = 20 years Desirable: >or= 60 mg/dL Low: <40 mg/dL Literature References: 1. Expert Panel on Integrated Guidelines for Cardiovascular Health and Risk Reduction in Children and Adolescents. Pediatrics 2011;128:S213 2. NCEP Expert Panel. Circulation 2004;110:227 Current Interpretive Data was last revised on 2018. LDL, calculated 62 <=129 mg/dL CARLO ESCOBAR Comment: Interpretive Data Ages < or = 19 years Acceptable: <110 mg/dL Borderline high: 110-129 mg/dL High: >or= 130 mg/dL Ages > or = 20 years Optimal: <100 mg/dL Near optimal: 100-129 mg/dL Borderline high: 130-159 mg/dL High: >160 mg/dL Calculated using the Martin LDL-C estimating equation. This equation was implemented on 2024. Prior to this date LDL-C was estimated using the Friedewald equation. Literature References: 1. Expert Panel on Integrated Guidelines for Cardiovascular Health and Risk Reduction in Children and Adolescents. Pediatrics 2011;128:S213 2. NCEP Expert Panel. Circulation 2004;110:227 3. Martin Flores et al. DARIUS Cardiol. 2019January 19;5(5):540-548. doi: 10.1001/jamacardio.2020.0013 Current Interpretive Data was last revised on 2024. Non-HDL Cholesterol 76 mg/dL CARLO ESCOBAR Comment: Interpretive Data Ages < or = 19 years Acceptable: <120 mg/dL Borderline high: 120-144 mg/dL High: >145 mg/dL Ages > or = 20 years When triglycerides are >200 mg/dL, Non-HDL cholesterol is a secondary target of therapy with treatment goals that are 30 mg/dL greater than the LDL cholesterol target. Literature References: 1. Expert Panel on Integrated Guidelines for Cardiovascular Health and Risk Reduction in Children and Adolescents. Pediatrics 2011;128:S213 2. NCEP Expert Panel. Circulation 2004;110:227 Current Interpretive Data was last revised on 2018. Chol/HDL ratio 3 CARLO ESCOBAR Blood 03/31/2025 12:2 2 PM CDT 03/31/2025 12:57 PM CDT us Mary Dasilva NP LAB BLOOD ORDERABLES Final Re sult CARLO ESCOBAR [address] [facility] Department [place] [address] * Screening Mammogram Bilateral W Олег (07/20/2024 9:46 AM CDT) Anatomical Region Laterality Modality Breast Bilateral Mammography Impressions 08/03/2024 1:47 PM SURFACE TO AIR WEAPONS OFFICER BI-RADS ATLAS category (overall): 1 - Negative There is no mammographic evidence of malignancy. A 1 year screening mammogram is recommended. The patient has been or will be contacted. We recommend annual screening mammography for women at average risk of breast cancer beginning at age 40, based on guidelines of the [employer] (ACR Practice Parameter for the Performance of Screening and Diagnostic Mammography) and [employer]. For women with and elevated risk of breast cancer, please refer to the ACR Practice Parameter for specific screening recommendations. The patient will be entered into a reminder system with a target due date of 1 year for her next screening exam. Narrative 08/03/2024 1:47 PM SURFACE TO AIR WEAPONS OFFICER Screening Mammogram Bilateral W Олег: 07/20/24 The study was acquired using full field digital technology and interpreted from soft copy. 2D digital mammographic views, as well as 3D digital tomosynthesis were performed in the CC and MLO projections. CLINICAL: Screening mammogram, encounter for. No relevant medical history has been documented for this patient. History of breast cancer in Neg Hx. COMPARISONS: 09/08/2017 Screening Mammogram Bilateral W Олег 07/20/2015 US Breast Right Complete 07/20/2015 Diagnostic Mammogram Bilateral W Олег BREAST TISSUE: The breasts are almost entirely fatty. FINDINGS: No suspicious masses, suspicious calcifications, or other suspicious findings are seen within either breast. There has been no suspicious change. Mary Dasilva NP IMG MAMMO PROCEDURES Final Re sult * Albumin Creatinine Ratio, Urine (06/29/2024 10:20 AM CDT) Albumin Ur <12.0 mg/L Comment: Interpretive Data No reference range established. Current interpretive data was last revised 2019. Creatinine Ur 170.0 mg/dL CARLO ESCOBAR Comment: Interpretive Data No reference range established. Current interpretive data was last revised 2019. Albumin Creatinine Ratio, Ur <7 1 - 29 mg/g CARLO ESCOBAR Urine 06/29/2024 10:2 0 AM CDT 06/29/2024 10:46 AM CDT us Mary Dasilva NP LAB URINE ORDERABLES Final Re sult CARLO ESCOBAR [address] [facility] Department [place] [address] from Last 3 Months or Most Recently Relevant to Health Maintenance Insurance [facility] Address: [place] [address] [facility]O Address: [address] [address] [facility]O Address: [address] [address] Care Teams Hospital Medical Biller Relationship Specialty Start Date End Date Mary Dasilva NP [address] [address] PCP - General Internal Medicine 12/20/24 Erma Levine MD Consulting Physician Interventional Cardiology 04/29/19
--- OUTSIDE RECORDS SUMMARY | 2025-07-04 08:34 | XMS_ITS | Encounter Summary ---
Author Organization [facility] Facility Care Team Providers Care Courtesy Van Driver Name Role Phone Yair Singh MD Primary Care Provider [phone] Cuate Ramirez MD Primary Care Provider [phone] Erma Levine MD Unavailable Miscellaneous, Not In File Primary Care Provider Unavailable Mary Dasilva NP Primary Care Provider [phone] Mary Dasilva LICENSED GUIDE Primary Care Provider [phone] Encounter Details Date Type Department Care Team (Latest Contact Info) Description 09/11/2016 Orders Only MMG CLINCONV Provider, MD [place] [address] [place] [address] Social History Tobacco Use Types Packs/Day Years Used Date Smoking Tobacco: Never Assessed Comments Unknown Sex and Gender Information Value Date Recorded Sex Assigned at Not on file Legal Sex Female 11:33 PM SURGICAL RN Gender Identity Female 05/22/2023 7:14 AM CDT Sexual Orientation Not on file documented as of this encounter Plan of Treatment Not on file documented as of this encounter Procedures Procedure Name Priority Date/Time Associated Diagnosis Comments CARDIOLOGY REPORT 08/28/2017 12: 00 AM SURGICAL RN documented in this encounter Results * CARDIOLOGY REPORT (08/28/2017 12:00 AM SURGICAL RN) Anatomical Region Laterality Modality Other Narrative 08/28/2017 12:00 AM SURGICAL RN Ordered by an unspecified provider. us Historical Provider [facility] ALEXANDRO GALAN Final Result documented in this encounter Visit Diagnoses Not on filedocumented in this encounter Care Teams Courtesy Van Driver Relationship Specialty Start Date End Date Yair Singh MD [address] [facility] [address] [place] [address] PCP - General 07/09/17 11/29/18 Cuate Ramirez MD [address] [address] PCP - General 11/30/18 05/31/23 Miscellaneous, Not In File PCP - General 06/01/23 06/18/23 Mary Dasilva NP PCP - General Internal Medicine 06/19/23 12/19/24 Mary Dasilva NP [address] [facility] [address] [place] [address] PCP - General Internal Medicine 12/20/24 Erma Levine MD [address] [address] Consulting Physician Interventional Cardiology 04/29/19 documented as of this encounter
--- OUTSIDE RECORDS SUMMARY | 2025-07-04 08:34 | XMS_ITS | Encounter Summary ---
Author Organization [facility] Facility Care Team Providers Care Lead Technical Writer Name Role Phone Yair Singh MD Primary Care Provider [phone] Cuate Ramirez MD Primary Care Provider [phone] Erma Levine MD Unavailable Miscellaneous, Not In File Primary Care Provider Unavailable Mary Dasilva NP Primary Care Provider [phone] Mary Dasilva ASSISTANT BUYER Primary Care Provider [phone] Encounter Details Date Type Department Care Team (Latest Contact Info) Description 09/09/2014 Orders Only MMG CLINCONV Provider, MD [place] [address] [place] [address] Social History Tobacco Use Types Packs/Day Years Used Date Smoking Tobacco: Never Assessed Comments Unknown Sex and Gender Information Value Date Recorded Sex Assigned at Not on file Legal Sex Female 11:33 PM INTERNET MARKETING INTERN Gender Identity Female 05/22/2023 7:14 AM CDT Sexual Orientation Not on file documented as of this encounter Plan of Treatment Not on file documented as of this encounter Procedures Procedure Name Priority Date/Time Associated Diagnosis Comments CARDIOLOGY REPORT 02/26/2016 12: 00 AM CDT documented in this encounter Results * CARDIOLOGY REPORT (02/26/2016 12:00 AM CDT) Anatomical Region Laterality Modality Other Narrative 02/26/2016 12:00 AM CDT Ordered by an unspecified provider. us Historical Provider [facility] ALEXANDRO GALAN Final Result documented in this encounter Visit Diagnoses Not on filedocumented in this encounter Care Teams Lead Technical Writer Relationship Specialty Start Date End Date Yair Singh MD [address] [address] PCP - General 07/09/17 11/29/18 Cuate Ramirez MD [address] [address] PCP - General 11/30/18 05/31/23 Miscellaneous, Not In File PCP - General 06/01/23 06/18/23 Mary Dasilva NP PCP - General Internal Medicine 06/19/23 12/19/24 Mary Dasilva NP [facility] [address] [place] [address] PCP - General Internal Medicine 12/20/24 Erma Levine MD [address] [address] Consulting Physician Interventional Cardiology 04/29/19 documented as of this encounter
--- OUTSIDE RECORDS SUMMARY | 2025-07-04 08:34 | XMS_ITS | Encounter Summary ---
Author Organization [facility] Facility Care Team Providers Care Watchmaking Teacher Name Role Phone Yair Singh MD Primary Care Provider [phone] Cuate Ramirez MD Primary Care Provider [phone] Erma Levine MD Unavailable Miscellaneous, Not In File Primary Care Provider Unavailable Mary Dasilva NP Primary Care Provider [phone] Mary Dasilva SODA FOUNTAIN MANAGER Primary Care Provider [phone] Encounter Details Date Type Department Care Team (Latest Contact Info) Description 10/05/2014 Orders Only MMG CLINCONV Provider, MD [place] [address] [place] [address] Social History Tobacco Use Types Packs/Day Years Used Date Smoking Tobacco: Never Assessed Comments Unknown Sex and Gender Information Value Date Recorded Sex Assigned at Not on file Legal Sex Female 11:33 PM BOBBIN CLEANER Gender Identity Female 05/22/2023 7:14 AM CDT [...] on filedocumented in this encounter Care Teams Watchmaking Teacher Relationship Specialty Start Date End Date Yair Singh MD [address] [address] PCP - General 07/09/17 11/29/18 Cuate Ramirez MD [address] [address] PCP - General 11/30/18 05/31/23 Miscellaneous, Not In File PCP - General 06/01/23 06/18/23 Mary Dasilva NP PCP - General Internal Medicine 06/19/23 12/19/24 Mary Dasilva NP [facility] [address] [place] [address] PCP - General Internal Medicine 12/20/24 Emra Levine MD [address] [address] Consulting Physician Interventional Cardiology 04/29/19 documented as of this encounter
--- OUTSIDE RECORDS SUMMARY | 2025-07-04 08:34 | XMS_ITS | Encounter Summary ---
Author Organization [facility] Facility Care Team Providers Care Applications Consultant Name Role Phone Yair Singh MD Primary Care Provider Cuate Ramirez MD Primary Care Provider [phone] Erma Levine MD Unavailable Miscellaneous, Not In File Primary Care Provider Unavailable Mary Dasilva NP Primary Care Provider [phone] Mary Dasilva HEAD OF DIGITAL Primary Care Provider [phone] Encounter Details Date Type Department Care Team (Latest Contact Info) Description 09/08/2014 Orders Only MMG CLINCONV Provider, MD [place] [address] [place] [address] Social History Tobacco Use Types Packs/Day Years Used Date Smoking Tobacco: Never Assessed Comments Unknown Sex and Gender Information Value Date Recorded Sex Assigned at Not on file Legal Sex Female 11:33 PM SERVICE ORDER DISPATCHER CHIEF Gender Identity Female 05/22/2023 7:14 AM CDT [...] on filedocumented in this encounter Care Teams Applications Consultant Relationship Specialty Start Date End Date Yair Singh MD [address] [address] PCP - General 07/09/17 11/29/18 Cuate Ramirez MD [address] [address] PCP - General 11/30/18 05/31/23 Miscellaneous, Not In File PCP - General 06/01/23 06/18/23 Mary Dasilva NP PCP - General Internal Medicine 06/19/23 12/19/24 Mary Dasilva NP [facility] [address] [place] [address] PCP - General Internal Medicine 12/20/24 Erma Levine MD [address] [address] Consulting Physician Interventional Cardiology 04/29/19 documented as of this encounter
--- OUTSIDE RECORDS SUMMARY | 2025-07-04 08:34 | XMS_ITS | Encounter Summary ---
Author Organization [facility] Facility Care Team Providers Care Medical Genetics Director Name Role Phone Yair Singh MD Primary Care Provider [phone] Cuate Ramirez MD Primary Care Provider [phone] Erma Levine MD Unavailable [phone] Miscellaneous, Not In File Primary Care Provider Unavailable Mary Dasilva NP Primary Care Provider [phone] Mary Dasilva CREDIT RISK SPECIALIST Primary Care Provider [phone] Encounter Details Date Type Department Care Team (Latest Contact Info) Description 02/27/2016 Orders Only MMG CLINCONV Provider, MD [place] [address] [place] [address] Social History Tobacco Use Types Packs/Day Years Used Date Smoking Tobacco: Never Assessed Comments Unknown Sex and Gender Information Value Date Recorded Sex Assigned at Not on file Legal Sex Female 11:33 PM SALES PLANNER Gender Identity Female 05/22/2023 7:14 AM CDT Sexual Orientation Not on file documented as of this encounter Plan of Treatment Not on file documented as of this encounter Procedures Procedure Name Priority Date/Time Associated Diagnosis Comments PROCEDURE - RESULT 02/27/2016 12 :00 AM CDT documented in this encounter Results * PROCEDURE - RESULT (02/27/2016 12:00 AM CDT) Narrative 02/27/2016 12:00 AM CDT Ordered by an unspecified provider. us Historical Provider Final Res ult documented in this encounter Visit Diagnoses Not on filedocumented in this encounter Care Teams Medical Genetics Director Relationship Specialty Start Date End Date Yair Singh MD [address] [facility] [address] [place] [address] PCP - General 07/09/17 11/29/18 Cuate Ramirez MD [address] [address] PCP - General 11/30/18 05/31/23 Miscellaneous, Not In File PCP - General 06/01/23 06/18/23 Mary Dasilva NP PCP - General Internal Medicine 06/19/23 12/19/24 Mary Dasilva NP [address] [facility] [address] [place] [address] PCP - General Internal Medicine 12/20/24 Erma Levine MD [address] [address] Consulting Physician Interventional Cardiology 04/29/19 documented as of this encounter
--- OUTSIDE RECORDS SUMMARY | 2025-07-04 08:34 | XMS_ITS | Encounter Summary ---
Author Organization [facility] Facility Care Team Providers Care Us Marketing Director Name Role Phone Yair Singh MD Primary Care Provider [phone] Cuate Ramirez MD Primary Care Provider [phone] Erma Levine MD Unavailable Miscellaneous, Not In File Primary Care Provider Unavailable Mary Dasilva NP Primary Care Provider [phone] Mary Dasilva GROUP WORK PROGRAM AIDE Primary Care Provider Encounter Details Date Type Department Care Team (Latest Contact Info) Description 10/08/2015 Orders Only MMG CLINCONV Provider, MD [place] [address] [place] [address] Social History Tobacco Use Types Packs/Day Years Used Date Smoking Tobacco: Never Assessed Comments Unknown Sex and Gender Information Value Date Recorded Sex Assigned at Not on file Legal Sex Female 11:33 PM WOOD SCRAP HANDLER Gender Identity Female 05/22/2023 7:14 AM CDT [...] on filedocumented in this encounter Care Teams Us Marketing Director Relationship Specialty Start Date End Date Yair Singh MD [address] [address] PCP - General 07/09/17 11/29/18 Cuate Ramirez MD [address] [address] PCP - General 11/30/18 05/31/23 Miscellaneous, Not In File PCP - General 06/01/23 06/18/23 Mary Dasilva NP PCP - General Internal Medicine 06/19/23 12/19/24 Mary Dasilva NP [facility] [address] [place] [address] PCP - General Internal Medicine 12/20/24 Erma Levine MD [address] [address] Consulting Physician Interventional Cardiology 04/29/19 documented as of this encounter
--- OUTSIDE RECORDS SUMMARY | 2025-07-04 08:34 | XMS_ITS | Encounter Summary ---
Author Organization [facility] Facility Care Team Providers Care Synthetic Gem Press Operator Name Role Phone Yair Singh MD Primary Care Provider [phone] Cuate Ramirez MD Primary Care Provider [phone] Erma Levine MD Unavailable Miscellaneous, Not In File Primary Care Provider Unavailable Mary Dasilva NP Primary Care Provider [phone] Mary Dasilva WEB CONTENT DIRECTOR Primary Care Provider [phone] Encounter Details Date Type Department Care Team (Latest Contact Info) Description 10/04/2015 Orders Only MMG CLINCONV Provider, MD [place] [address] [place] [address] Social History Tobacco Use Types Packs/Day Years Used Date Smoking Tobacco: Never Assessed Comments Unknown Sex and Gender Information Value Date Recorded Sex Assigned at Not on file Legal Sex Female 11:33 PM BROADBAND ENGINEER Gender Identity Female 05/22/2023 7:14 AM CDT [...] on filedocumented in this encounter Care Teams Synthetic Gem Press Operator Relationship Specialty Start Date End Date Yair Singh MD [address] [address] PCP - General 07/09/17 11/29/18 Cuate Ramirez MD [address] [address] PCP - General 11/30/18 05/31/23 Miscellaneous, Not In File PCP - General 06/01/23 06/18/23 Mary Dasilva NP PCP - General Internal Medicine 06/19/23 12/19/24 Mary Dasilva NP [facility]2 [facility] [address] [place] [address] PCP - General Internal Medicine 12/20/24 Erma Levine MD [address] [address] Consulting Physician Interventional Cardiology 04/29/19 documented as of this encounter
== END 2025-07-04 08:19 | disposition home or self-care (01) ==
LOC: ANHBWCAUD 08:19
PROVIDERS: PCP Otolaryngology; Visit Provider Otolaryngology
DX: H90.41 Sensorineural hearing loss, unilateral, right ear, with unrestricted hearing on the contralateral side (principal); H93.8X1 Other specified disorders of right ear; H92.01 Otalgia, right ear; H69.91 Unspecified Eustachian tube disorder, right ear
CPT/HCPCS: 92557; 92567